=== PATIENT | female | born 1995 ===

== ENCOUNTER 2016-07-24 16:48 | Emergency (ER) | payer BC ==
[2016-07-24] MEDS ORDERED: Ondansetron ODT TAB* 4 MG PO ONE (18:37)
--- NOTE | 2016-07-25 20:14 | UC ---
Jeovanny Vgea Aidan, scribed for Clarita Johns MD on 07/24/16 at 1833 . Abdominal Pain Female HPI - HPI Summary HPI Summary: 21 y/o female presents to the Urgent Care with a complaint of acute, moderate (6 /10), dull abdominal pain that has persisted intermittently for roughly 2 weeks after meals and became constant and severe last night. Though the pain is typically dull, she gets sporadic bouts of sharp pain that can reach 8-9/10. Pt denies any vomiting. All she had to eat today was a bagel and a smoothie at 1130 , which caused some pain during swallowing but no abdominal pain after. Pt went to [employer] at today and was advised to seek medical attention because the pain was more severe, and during the exam when the provider pushed on pt's left side, pt had pain in her RLQ. No fever - History of Current Complaint Chief Complaint: UCAbdominalPain Stated Complaint: ABD PAIN Time Seen by Provider: 07/24/16 18:19 Hx Obtained From: Patient, Family/Fiberglass Finisher - mother, who drove two hours to be with pt because the pain was so severe. Hx Last Menstrual Period: 07/09/16 ?: No Onset/Duration: Sudden Onset, Lasting Weeks, Still Present, Worse Since - today Timing: Constant - intermittent for close to 2 weeks, then became constant last night Severity Initially: Moderate Severity Currently: Moderate Pain Intensity: 6 - pain can reach 8-9/10 during sharp shoots Pain Scale Used: 0-10 Numeric Location: Diffuse - points periumbilical Radiates: No Character: Dull, Sharp - pain is typically dull, but becomes sharp during intermittent bouts Aggravating Factor(s): Food Alleviating Factor(s): Nothing Associated Signs and Symptoms: Positive: Negative. Negative: Fever, Urinary Symptoms, Vomiting - Risk Factors Ovarian Torsion Risk Factor: Reproductive Age Allergies/Adverse Reactions: Allergies Allergy/AdvReac Type Severity Reaction Status Date / Time No Known Allergies Allergy Verified 07/24/16 17:17 Home Medications: Home Medications Citalopram TAB* [CeleXA TAB*] 10 mg PO DAILY 07/24/16 [History Confirmed ] Omeprazole CAP* [Prilosec CAP* 20 MG] 20 mg PO DAILY 07/24/16 [History Confirmed 07/24/16] PMH/Surg Hx/FS Hx/Imm Hx Previously Healthy: Yes - Surgical History Surgical History: None - Family History Known Family History: Positive: Other - "GI issues" with father - Social History Occupation: Student Alcohol Use: None Substance Use Type: None Smoking Status (MU): Never Smoked Tobacco Review of Systems Constitutional: Negative Skin: Negative Eyes: Negative ENT: Negative Respiratory: Negative Cardiovascular: Negative Gastrointestinal: Abdominal Pain Genitourinary: Negative Motor: Negative Neurovascular: Negative Musculoskeletal: Negative Neurological: Negative Psychological: Negative All Other Systems Reviewed And Are Negative: Yes Physical Exam Triage Information Reviewed: Yes Appearance: Well-Appearing, Well-Nourished, Pain Distress Vital Signs: Initial Vital Signs Temp 98.9 F 07/24/16 17:12 Pulse 92 07/24/16 17:12 Resp 20 07/24/16 17:12 BP 107/57 07/24/16 17:12 Pulse Ox 99 07/24/16 17:12 Vital Signs Reviewed: Yes Eyes: Positive: Conjunctiva Clear ENT: Positive: Normal ENT inspection Neck: Positive: Supple Respiratory: Positive: Lungs clear, Normal breath sounds, No respiratory distress Cardiovascular: Positive: RRR, No Murmur, Pulses Normal, Brisk Capillary Refill Abdomen Description: Positive: No Organomegaly, Soft, McBurney's Point Tenderness, Other: - Pt is able to jump up and down twice without increase in pain, or doubling over. Negative: Nontender, CVA Tenderness (R), CVA Tenderness (L), Distended, Guarding, Peritoneal Signs Bowel Sounds: Positive: Present Musculoskeletal: Positive: Strength Intact, ROM Intact Neurological: Positive: Alert, Muscle Tone Normal Psychological Exam: Normal Skin Exam: Normal Abd Pain Female Course/Dx - Course Course Of Treatment: Pt unable to void at this time, just did. 1855: the patient signed out AMA and was ambulatory at discharge with no apparent distress. Pt is with mother and after talking with family friend who is a surgeon, they will drive to where he is for further evaluation. - Differential Dx/Diagnosis Differential Diagnosis: Appendicitis, Constipation, Irritable Bowel Syndrome, Urinary Tract Infection Provider Diagnoses: acute RLQ abdominal pain - Physician Notification/Consults Discussed Patient Care With: Dr. David Thompson, surgeon who is a family friend. I presented pt's history and physical to him. Family and Dr. Thompson and I concur that pt needs further evaluation, and family are most comfortable going to Dr. Thompson. If pt worsens enroute, mother will stop at [facility] ED. Instructed by Provider To: Other - seek further evaluation in ED, either [place], or [facility], if pt sxs worsen. Discharge - Discharge Plan Condition: Stable Disposition: AGAINST MEDICAL ADVICE Patient Education Materials: Acute Abdominal Pain (ED) Additional Instructions: Dr. David Thompson will see you in [place] now. Do not have anything to eat or drink. The documentation as recorded by the Jeovanny gordillo Aidan accurately reflects the service I personally performed and the decisions made by me, Clarita Johns MD.
== END 2016-07-24 18:50 | disposition left against medical advice (07) ==
LOC: UCEAST 16:48
DX: R10.31 Right lower quadrant pain (principal)
CPT/HCPCS: 99202; A9270-GY; G0463